=== PATIENT | female | born 1985 | race Caucasian/White ===

== ENCOUNTER → 2021-02-16 17:36 | Outpatient (CLI) | payer OTHER, MEDICAID, SELFPAY ==
[2021-02-16 18:16] LABS: COVID19 -Nasal RAPID Negative (Negative)
== END ==
PROVIDERS: Visit Provider Student in an Organized Health Care Education/Training Program
DX: J02.9 Acute pharyngitis, unspecified (principal); Z20.822 Contact with and (suspected) exposure to COVID-19
CPT/HCPCS: 87070; 87147; 87635

== ENCOUNTER 2021-07-30 16:42 | Emergency (ER) | payer OTHER, MEDICAID, SELFPAY ==
[2021-07-30 16:50] VITALS: BP 127/75; PULSE 93; RESP 16; TEMP 36.8; O2SAT 100; BMI 31.0
[2021-07-30 17:15] LABS: COVID19 -Nasal RAPID POSITIVE (Negative)
--- NOTE | 2021-07-30 17:17 | ED_ITS ---
HPI - URI/Sore Throat <TAMMY Porter - Last Filed: 07/30/21 20:16> General Chief Complaint: Upper Respiratory Symptoms Stated Complaint: COVID TEST SYMPTOMS Time Seen by Provider: 07/30/21 17:16 History of Present Illness HPI Narrative: 35-year-old Destin presents to the ED for congestion, ear pain, mild URI symptoms for 4 days with concern for COVID. Destin denies any shortness of breath, chest pain, difficulty breathing, nausea, vomiting, fever, dysuria, or other symptom. Destin is requesting a COVID test today. Related Data Home Medications Medication Instructions Recorded Confirmed Venlafaxine PO 02/16/21 02/16/21 methocarbamol PO 02/16/21 02/16/21 Allergies Allergy/AdvReac Type Severity Reaction Status Date / Time No Known Drug Allergies Allergy Unverified 02/16/21 17:33 Review of Systems <TAMMY Porter - Last Filed: 07/30/21 20:16> Review of Systems Narrative: General: denies fever, chills, feels fatigue Head/Neck: denies headache, neck pain Eyes: denies visual changes, eye pain Cardio: denies chest pain, palpitations Respiratory: denies shortness of breath, cough GI: denies abdominal pain, nausea, vomiting, or diarrhea : denies dysuria, hematuria MSK: denies joint pain, endorses having mild muscle aches Skin: denies rash, itching Neuro: denies numbness, tingling Patient History <TAMMY Porter - Last Filed: 07/30/21 20:16> Social History Smoking Status: Never smoker Smoking Status: Never smoker Exam <TAMMY Porter - Last Filed: 07/30/21 20:16> Narrative Exam Narrative: Independently reviewed vitals signs and nursing notes. General: Awake, alert, nontoxic, no cardiorespiratory distress Head/Neck: Atraumatic, neck full range of motion Eyes: EOMI, conjunctiva normal Nose: nares patent, no rhinorrhea Mouth/Throat: moist mucus membranes, posterior pharynx normal, no oral lesions Cardio: Regular rate and rhythm, no peripheral edema Respiratory: Breath sounds are clear throughout, unlabored without wheezing, stridor, or rales. No retractions, no hypoxia. GI: Abdomen soft, nontender MSK: Moves all extremities, neurovascularly intact Skin: Normal capillary refill, no rash Neuro: Normal speech and cognition, normal gait Initial Vital Signs Initial Vital Signs: Vital Signs Temperature 98.2 F 07/30/21 16:50 Pulse Rate 93 H 07/30/21 16:50 Respiratory Rate 16 07/30/21 16:50 Blood Pressure 127/75 07/30/21 16:50 Pulse Oximetry 100 07/30/21 16:50 <Corby Mccann DO - Last Filed: 07/31/21 06:56> Initial Vital Signs Initial Vital Signs: Vital Signs Temperature 98.2 F 07/30/21 16:50 Pulse Rate 93 H 07/30/21 16:50 Respiratory Rate 16 07/30/21 16:50 Blood Pressure 127/75 07/30/21 16:50 Pulse Oximetry 100 07/30/21 16:50 Course <TAMMY Porter - Last Filed: 07/30/21 20:16> Orders Ordered: ED Orders 07/30/21 16:52 COVID19 -Nasal swab/Pre-Proc Stat Vital Signs Vital signs: Vital Signs - 8 hr 07/30/21 16:50 07/30/21 18:29 Temperature 98.2 F Pulse Rate 93 H 77 Respiratory Rate 16 16 Blood Pressure 127/75 120/75 Pulse Oximetry 100 99 <Corby Mccann DO - Last Filed: 07/31/21 06:56> Orders Ordered: ED Orders 07/30/21 16:52 COVID19 -Nasal swab/Pre-Proc Stat Vital Signs Vital signs: Vital Signs - 8 hr 07/30/21 16:50 07/30/21 18:29 Temperature 98.2 F Pulse Rate 93 H 77 Respiratory Rate 16 16 Blood Pressure 127/75 120/75 Pulse Oximetry 100 99 MDM - URI/Sore Throat <TAMMY Porter Last Filed: 07/30/21 20:16> Lab Data Labs: Lab Results 07/30/21 Range/Units 16:52 SARS-CoV-2 (PCR) Positive H (Negative) MDM Narrative Medical decision making narrative: 35-year-old patient, goes by Destin, presents for 4 days of congestion, ear pain, and feeling fatigued. Patient's COVID test was positive. Destin does not have any respiratory distress, tachypnea, hypoxia, is afebrile, and denies any other symptom. Destin is instructed to quarantine for 10 days from symptom onset, or to continue quarantine as long as having symptoms. Destin understands to come back to the emergency department for any new or worsening symptoms, any shortness of breath, hypoxia, or respiratory distress. Destin was instructed on techniques for pulmonary hygiene and symptom management at home. <Corby Mccann, DO - Last Filed: 07/31/21 06:56> Lab Data Labs: Lab Results 07/30/21 Range/Units 16:52 SARS-CoV-2 (PCR) Positive H (Negative) Discharge Plan Departure Patient Disposition: Home Clinical Impression: COVID-19 Instructions: DI for COVID-19 (Suspected or Confirmed ) Activity Restrictions/Additional Instructions: *You have been diagnosed with COVID-19, a viral respiratory illness. If you can, get a pulse oximeter to monitor your oxygen at home. Remember to get up and walk around the house often. Quarantine for 10 days from symptom onset. If symptom free at 10 days okay to resume lifestyle as usual. If still having symptoms, continue quarantine until gone. Use Tylenol or Motrin for pain or fever. Come back to the emergency department if you develop shortness of breath, low oxygen levels, chest pain, or any symptoms not manageable at home. *What to do: *Please continue to take your regular medications as directed. [ ] New medication prescriptions sent to your pharmacy: [ ] [ ] New medication written as a paper prescription [x] No new medications given *Please follow up with your primary care provider in 2-3 days, call for an appointment. Let them know you were seen in the Emergency Department and that we ask that you be seen in follow up. We will electronically transmit a record of today's note if your PCP is in our system *If you do not have a primary care provider please contact the [facility] Resource line at [phone]. They will ask some questions about your medical history and help get you set up with a doctor in the community. *Return to Emergency Department if you should have any new, worsening or concerning symptoms, such as [fever greater than 101F, chills, worsening pain, persistent vomiting or other bothersome symptoms] Prescriptions: No Action Venlafaxine PO RF: 0 methocarbamol PO RF: 0 Referrals: Miscellaneous,Doctor, [Primary Care Provider] - <Corby Mccann, - Last Filed: 07/31/21 06:56> Cosign ED Attending Cosignature Attestation: Dr Mccann Co-Sign Statement: I was available for consultation during this patient's emergency department visit. This chart is signed by myself for administrative purposes only. I did not have direct contact with this patient during this visit. They were seen independently by the APC.
--- NOTE | 2021-07-30 18:03 | PC.NURSE ---
pt is feeling tired.
[2021-07-30 18:29] VITALS: BP 120/75; PULSE 77; RESP 16; O2SAT 99
== END 2021-07-30 18:29 | disposition home or self-care (01) ==
PROVIDERS: Emergency Medicine; Emergency Provider Nurse Practitioner Critical Care Medicine
DX: U07.1 COVID-19 (principal)
CPT/HCPCS: 87635; 99281; 99282; C9803

== ENCOUNTER → 2022-04-24 16:16 | Outpatient (CLI) | payer MEDICARE, MEDICAID, SELFPAY ==
--- NOTE | 2022-04-24 16:21 | DI.RAD.S_ITS ---
PROCEDURE: XR FOOT LT MIN 3V INDICATIONS: Left foot pain, previous surgery on a boat TECHNIQUE: 3 views of the foot were acquired. COMPARISON: [facility], CR, XR FOOT 3+ VIEWS LEFT, 04/24/2018, 17:07. FINDINGS: Bones: 5th metatarsal base screw. The screw is fractured in the midportion as before. Joanna valgus deformity with bunion formation. There is additional medial deviation of the metatarsals. Prior fracture at the 4th metatarsal with incomplete osseous union. Prior fracture at the 5th metatarsal. Bipartite tibial sesamoid bone. No suspicious bony lesions. Soft tissues: No tibiotalar joint effusion. Achilles tendon appears normal. IMPRESSION: No significant change compared to 2018. Prior 4th and 5th metatarsal fractures. 5th metatarsal screw is fractured as before. Dictated by: Dilan Norton M.D. on 04/24/2022 at 16:51 Approved by: Dilan Norton M.D. on 04/24/2022 at 16:56
== END ==
PROVIDERS: Referring Provider Physician Assistant; Visit Provider Physician Assistant
DX: M79.672 Pain in left foot (principal)
CPT/HCPCS: 73630